=== PATIENT | female | born 1955 | race Caucasian/White ===

== ENCOUNTER 2019-09-16 | Emergency (ER) | payer OTHER, BC ==
[~2019-09-16] MED LIST: ASPIRIN EC81 MG PO; LEVOTHYROXIN75 MCG PO; LOSARTAN POT50 MG PO; PRILOSEC40 MG PO; SIMVASTATIN20 MG PO
[2019-09-16] MEDS ORDERED: TRAMADOL HCL50 MG PO (18:08)
== END 2019-09-16 18:36 | disposition home or self-care (01) | DRG 563 ==
DX: S82.61XA Displaced fracture of lateral malleolus of right fibula, initial encounter for closed fracture (principal); I10 Essential (primary) hypertension; X50.0XXA Overexertion from strenuous movement or load, initial encounter; X50.9XXA Other and unspecified overexertion or strenuous movements or postures, initial encounter